=== PATIENT | male | born 1970 | race Caucasian/White ===

== ENCOUNTER 2019-03-04 19:24 | Inpatient (IN) ==
[2019-03-04] MEDS ORDERED: ZOFRAN IV ONE (20:21)
[2019-03-04] MEDS ORDERED: NS 1,000 ML IV ONE ×2 (20:21→23:40)
[2019-03-04 20:24] LABS: BASO# 0.03 X1000 (0.0-0.2); BASO% 0.3 % (0.0-0.8); EOS# 0.06 X1000 (0.0-0.7); EOS% 0.6 % (0.0-10.0); HEMOGLOBIN 14.5 g/dL (14.0-18.0); IMM GRAN# 0.03 X1000 (0.0-0.04); IMM GRAN% 0.3 % (0.0-0.5); LYMPH# 0.92 X1000 (1.2-3.4); LYMPH% 8.6 % (20.5-51.1); MCH 27.2 PG (27-31); MCHC 33.7 g/dL (33-37); MCV 80.7 FL (81-99); MONO# 0.48 X1000 (0.11-0.59); MONO% 4.5 % (1.7-9.3); NEUT# 9.21 X1000 (1.4-6.5); NEUT% 85.7 % (42.2-75.2); PLT 208 X1000 (130-400); RBC 5.33 XMIL (4.7-6.1); WBC 10.73 X1000 (4.8-10.8)
[2019-03-04 20:37] LABS: ALBUMIN 4.8 g/dL (3.5-5.0); CALCIUM 9.7 mg/dL (8.8-10.2); CREATININE 2.9 mg/dL (0.7-1.2); MAGNESIUM 1.6 mg/dL (1.5-2.7); PHOSPHORUS 1.5 mg/dL (2.7-4.5); POTASSIUM 4.1 mmol/L (3.5-5.1); TOTAL BILIRUBIN 0.5 mg/dL (0.20-1.00); TOTAL PROTEIN 7.3 g/dL (6.3-8.3)
--- NOTE | 2019-03-04 20:50 | PROVIDER DOCUMENTATION ---
This chart was entered by Ximena Vargas Scribe, acting as scribe for Marilyn Wells CRNP. HPI-General Adult - General Chief Complaint: Generalized Pain Stated Complaint: HEAT RELATED/LOC Time Seen by Provider: 03/04/19 19:52 Source: patient Allergies/Adverse Reactions: Patient Allergies Allergy/AdvReac Type Severity Reaction Status Date / Time codeine [Codeine] Allergy Severe HIVES Verified 11/30/12 15:29 Penicillins Allergy Severe HIVES Verified 11/30/12 15:29 methocarbamol [From Robaxin] Allergy Unknown Verified 01/17/16 18:11 Home Medications: Home Medication List Medication Instructions Recorded Confirmed Last Taken Type Gabapentin [Neurontin] 800 mg PO BID 11/30/12 03/04/19 01/17/16 08:00 History Oxycodone HCl [Oxycontin] 10 mg PO BID 11/30/12 03/04/19 01/17/16 08:00 History Oxycodone I.r. [Oxy Ir] 5 mg PO TID 11/30/12 03/04/19 01/17/16 08:00 History Losartan Potassium [Cozaar] 50 mg PO DAILY 01/12/15 03/04/19 01/17/16 08:00 History Pantoprazole Sodium [Protonix] 20 mg PO DAILY 01/17/16 03/04/19 01/17/16 08:00 History SIMVAstatin [Zocor] 10 mg PO QHS 01/17/16 03/04/19 01/16/16 History - History of Present Illness -Gen Adult Nature of Presenting Problems: Patient is a 48 yom who presents w/ c/o "doesn't feel right." n/v, shaking, muscle cramps starting today. Patient works outside some and doesn't drink a lot of water. Reports appropriate appetite. Patient's reports "his eyes will roll back in his head sometimes." However denies syncope, LOC, or seizure. D enies syncope, fever/chills, CP, dizziness, or SOB. Non-toxic in appearance. Review of Systems - Adult - REVIEW OF SYSTEMS - ADULT Constitutional: reports: no symptoms reported. denies: chills, fever, fatique Eyes: reports: no symptoms reported Ears, Nose, Mouth & Throat: reports: no symptoms reported Cardiovascular: reports: no symptoms reported. denies: chest pain, edema, palpitations Respiratory: reports: no symptoms reported. denies: cough, dyspnea on exertion, shortness of breath, wheezing Gastrointestinal: reports: see HPI, nausea, vomiting. denies: abdominal pain, hematemesis, diarrhea Genitourinary: reports: flank pain (R). denies: dysuria, urgency Musculoskeletal: reports: muscle aches (all over). denies: bone pain, neck pain Integumentary: reports: no symptoms reported Neurological: reports: no symptoms reported. denies: dizziness/vertigo, headache/migraines, syncope Psychiatric: reports: no symptoms reported Endocrine: reports: no symptoms reported Past History - Adult - PAST MEDICAL HISTORY-ADULT Review of Records: reports: Nursing Assessment Review, Medications Reviewed Major Childhood Illnesses: reports: denies history Cardiovascular: reports: HTN, hyperlipidemia Respiratory: reports: pneumonia Gastrointestinal: reports: denies history Obstetrical/Gynecological: reports: denies history Genitourinary: reports: denies history Musculoskeletal: reports: arthritis, chronic pain, neck/back injury, other fractures, orthopedic injury Neurological: reports: denies history Psychiatric: reports: denies history Endocrine/Immune: reports: denies history Other Conditions: reports: denies history - PRIOR SURGERIES/PROCEDURES Surgical/Procedure History: reports: hernia repair, orthopedic (extremity) - IMMUNIZATION STATUS Childhood Immunizations: See Nurse Assessment Flu Vaccine: See Nurse Assessment - FAMILY HISTORY Family History: reviewed, not pertinent - SOCIAL HISTORY Smoking: non-smoker Substance Use: alcohol Alcohol Use Frequency: rarely Physical Exam-General - PHYSICAL EXAM-ADULT Initial Vital Signs Reviewed: Yes - CONSTITUTIONAL General Appearance: alert, mild distress. negative: lethargic, slow to respond, obtunded - EYES Eyes: PERRL/EOMI, pink conjunctivae - HEAD, EARS, NOSE, MOUTH & THROAT HENMT: normocephalic/atraumatic, moist mucous membranes - NECK Neck: non-tender, full range of motion, supple, normal inspection - RESPIRATORY Respiratory: chest non-tender, lungs clear, normal breath sounds, no pleuratic chest pain, no respiratory distress, no accessory muscle use. negative: crackles, rales, rhonchi, stridor, wheezing, retractions, splinting - CARDIOVASCULAR Cardiovascular: normal peripheral pulses, regular rate, rhythm - GASTROINTESTINAL (ABDOMEN) Abdominal Exam: normal bowel sounds, non tender, soft, no organomegaly - MUSCULOSKELETAL Back Exam: normal inspection, CVA tenderness (minimal). negative: no CVA tenderness, decreased range of motion, ecchymosis Extremity: normal range of motion, non-tender, normal gait, normal inspection, pelvis stable Peripheral Pulses: radial (R): 2+, radial (L): 2+ - SKIN Integumentary: normal color, normal turgor, warm/dry. negative: cyanosis, jaundice, pallor - NEUROLOGIC Neurologic: grossly normal - PSYCHIATRIC Psych/Mental Status: normal mood/affect, normal thought content, normal thought process, oriented x 3 Progress - PLAN OF CARE/RESULTS Progress/Plan/Lab Results: Vital Signs - 8 hr 03/04/19 19:27 03/04/19 20:07 Temperature 97.7 F Pulse Rate 82 Pulse Rate [Sitting] 109 H Pulse Rate [Standing] 107 H Pulse Rate [Supine] 94 H Respiratory Rate 20 Blood Pressure 135/78 Blood Pressure [Sitting] 108/83 Blood Pressure [Standing] 133/83 Blood Pressure [Supine] 113/65 O2 Sat by Pulse Oximetry 98 Orders Category Date Time Status Orthostatic Vital Signs NOW Care 03/04/19 19:53 Active Saline Loc NOW Care 03/04/19 19:53 Active CBC WITH ELECTRONIC DIFF [HEME] Stat Lab 03/04/19 20:12 Received CK PROFILE [SP CHEM] Stat Lab 03/04/19 20:12 Received COMPREHENSIVE METABOLIC PANEL [CHEM] Stat Lab 03/04/19 20:12 Received MAGNESIUM [CHEM] Stat Lab 03/04/19 20:12 Received PHOSPHORUS [CHEM] Stat Lab 03/04/19 20:12 Received PRO B-NATRIURETIC PEPTIDE Stat Lab 03/04/19 20:12 Received PROTIME WITH INR [COAG] Stat Lab 03/04/19 20:11 Received PTT [COAG] Stat Lab 03/04/19 20:11 Received TROPONIN T Stat Lab 03/04/19 20:[address] W/POSS RFLX CULT [URINALYSIS] Stat Lab 03/04/19 19:53 Uncollected 0.9% Sodium Chloride Inj [Ns] 1,000 ml Med 03/04/19 20:21 Active IV 999 mls/hr Ondansetron [Zofran] Med 03/04/19 20:21 Once 4 mg IV NOW ONE EKG [EKG] Stat Ther 03/04/19 19:53 Ordered Result Diagrams: 03/04/19 20:12 03/04/19 20:12 - EKG 1 Time of EKG reading by physician:: 20:37 EKG Read and Signed by:: Ender Coyle EKG Interpretation (*Must complete 3 of following elements*): Normal Rate: 96 Rhythm: NSR [place]: normal QRS: normal VT Interval: normal ST Wave: normal - CT/MRI 1 CT Study: Renal Stone Impression: See EMR Report ("1. No hydronephrosis or nephroureterolithiasis 2. Nonobstructive bowel gas pattern. No free air or fluid. 3. Evidence of prior granulomatas infection.") - CONSULTS/PCP/HOSPITALIST Notification #1 *Consult/PCP/Hospitalist*: MD Serge Time Discussed: 23:49 Reason/Comments: STEPHON Consult Disposition: Admit Departure - Departure Date of Disposition Decision: 03/04/19 Time of Disposition Decision: 23:49 DIAGNOSIS: Acute kidney injury, Myalgia Hematuria Qualifiers: Hematuria type: unspecified type Qualified Code(s): R31.9 - Hematuria, unspecified Disposition: ADMITTED INPATIENT 09 Certified Medical Emergency: Emergent Condition: Stable Referrals and Follow-Ups: Júnior Orlando MD [Primary Care Provider] - - Critical Care Note This patient required my direct & personal management of CC.: No Attestation - Physician/ CINDY Attestation Patient care was provided by Advanced Practice Provider:: Yes Advanced Practice Provider:: Marilyn Wells Advanced Practice Provider documentation review:: The Mid-level provider documentation, treatment plan and medical decision making was reviewed by the physician who agrees with all treatment and medical decision making by the P. The physician spent face to face time with patient:: No Advanced Practice Provider documentation review:: Supervising physician onsite and consulted in the evaluation and care of this patient. The physician did not have a face to face encounter with the patient. This chart was documented by the indicated scribe, (Ximena Vargas Scribe) and accurately reflects the services I performed and decisions made by , Marilyn Wells CRNP, as attested by the provider's signature.
[2019-03-04 20:55] LABS: INR 1.01; PROTIME 13.8 Seconds (11.0-16.0); PTT 27.2 Seconds (22.3-41.8)
--- NOTE | 2019-03-04 21:47 | EKG Report ---
Test Performed on : 03/04/2019 8:33:53 PM Test Reason : dizziness Blood Pressure : / mmHG Vent. Rate : 096 BPM Atrial Rate : 096 BPM P-R Int : 134 ms QRS Dur : 094 ms QT Int : 360 ms P-R-T Axes : 000 026 033 degrees QTc Int : 454 ms Normal sinus rhythm. Normal ECG When compared with ECG of 30-NOV-2012 14:17, No significant change was found Unconfirmed Result
[2019-03-04 22:30] LABS: BILIRUBIN URINE NEGATIVE (NEGATIVE); BLOOD URINE 1+ (NEGATIVE); CLARITY CLEAR (CLEAR); COLOR YELLOW; GLUCOSE URINE NEGATIVE (NEGATIVE); KETONE URINE NEGATIVE (NEGATIVE); LEUKOCYTES URINE TRACE (NEGATIVE); NITRITE URINE NEGATIVE (NEGATIVE); PH URINE 6.5; PROTEIN URINE 1+(30 mg/dL) mg/dL (NEGATIVE); SP GRAVITY URINE 1.005; UROBILINOGEN URINE NORMAL
[2019-03-04 22:51] LABS: URINE RBC <10 /HPF (<10)
[2019-03-04 22:54] LABS: URINE BACTERIA 2+ /HFP; URINE CRYSTAL CA OXALATE PRESENT /HPF; URINE EPITHELIAL CELLS <10 /HPF (<10); URINE SOURCE CLEAN CATCH; URINE YEAST NONE SEEN /HPF
[2019-03-04] MEDS ORDERED: OXY IR PO ONE (23:47)
[2019-03-05] MEDS ORDERED: NS 1,000 ML IV ONE ×2 (00:07→02:16)
[2019-03-05 06:11] LABS: BASO# 0.03 X1000 (0.0-0.2); BASO% 0.4 % (0.0-0.8); EOS# 0.19 X1000 (0.0-0.7); EOS% 2.5 % (0.0-10.0); HEMATOCRIT 37.9 % (42.0-52.0); HEMOGLOBIN 12.4 g/dL (14.0-18.0); IMM GRAN# 0.02 X1000 (0.0-0.04); IMM GRAN% 0.3 % (0.0-0.5); LYMPH% 24.1 % (20.5-51.1); MCH 26.9 PG (27-31); MCHC 32.7 g/dL (33-37); MCV 82.2 FL (81-99); MONO# 0.66 X1000 (0.11-0.59); MONO% 8.8 % (1.7-9.3); MPV 9.7 FL (7.4-10.4); NEUT# 4.76 X1000 (1.4-6.5); NEUT% 63.9 % (42.2-75.2); PLT 178 X1000 (130-400); RBC 4.61 XMIL (4.7-6.1); RDW 12.9 % (11.5-14.5); WBC 7.46 X1000 (4.8-10.8)
[2019-03-05 06:35] LABS: CALCIUM 8.3 mg/dL (8.8-10.2); CREATININE 1.8 mg/dL (0.7-1.2); POTASSIUM 3.9 mmol/L (3.5-5.1)
[2019-03-05 06:36] LABS: ALBUMIN 3.9 g/dL (3.5-5.0); TOTAL BILIRUBIN 0.4 mg/dL (0.20-1.00); TOTAL PROTEIN 6.1 g/dL (6.3-8.3)
[2019-03-05] MEDS ORDERED: OXY IR PO PRN (07:41)
[2019-03-05] MEDS ORDERED: NS 1,000 ML IV SCH (07:45)
--- NOTE | 2019-03-05 07:47 | Diag Imaging Result Doc PS360 ---
EXAM: CT RENAL STONE SEARCH - 03/04/2019 HISTORY: Flank pain; hematuria TECHNIQUE: CT renal stone search without contrast COMPARISON: 05/06/2016 FINDINGS: There is no hydronephrosis or perinephric edema identified. There is no renal stone identified. There is no evidence of bowel obstruction. The right colon is tortuous. The appendix is questionably visualized and is unremarkable. There is a moderate amount retained fecal debris in colon. There is no free air. There are no calcified gallstones or pericholecystic inflammation identified. There are nonspecific small retroperitoneal lymph nodes. There are some degenerative changes noted at the lower lumbar spine. IMPRESSION: No evidence of renal stone or hydronephrosis. No bowel obstruction. Apparent constipation. Nonspecific small retroperitoneal lymph nodes. The on-call radiologist provided preliminary results at 11:33 PM on 03/04/2019. This exam was performed using automated exposure control, adjustment of mA or kV according to patient size, and/or use of iterative reconstruction technique. Electronically signed by Donavon Nguyen 03/05/2019 7:45 AM
[2019-03-05] MEDS ORDERED: OXYCONTIN PO SCH (09:00)
[2019-03-05] MEDS: NEURONTIN PO SCH ×2 (09:10→15:39)
[2019-03-05] MEDS: NS 1,000 ML IV SCH ×2 (09:20→14:28)
[2019-03-05 15:26] VITALS: BP 131/74
[2019-03-06] MEDS ORDERED: PROTONIX PO SCH (07:00)
--- NOTE | 2019-03-06 11:58 | HISTORY AND PHYSICAL ---
CHIEF COMPLAINT: Generalized fatigue. HISTORY OF PRESENT ILLNESS: The patient is a 48-year-old male who notes that he works outside in the heat. He notes that he had not been feeling well. He has had nausea, no real vomiting, but he has had shaking chills, muscle aches that all started today. He states he works outside. He probably does not drink enough. Denies decrease in appetite today. The notes that he had a presyncopal episode. She felt that his eyes rolled back and thought he was going to pass out, but he did not. He had no loss of consciousness. Did not fall. He was able sit down before she called the ER. ALLERGIES: 1. Codeine causing hives. 2. Penicillin causing hives. 3. Robaxin, unknown. MEDICATIONS: 1. Neurontin 800 b.i.d. 2. OxyContin. 3. Oxy IR. 4. Cozaar. 5. Protonix 20. 6. Simvastatin 10. PAST MEDICAL HISTORY: Significant for 1. Hypertension. 2. Hyperlipidemia. 3. Recurrent pneumonia. 4. Chronic neck and back pain. 5. History of fractures. PAST SURGICAL HISTORY: 1. He has had a hernia repair. 2. Orthopedic surgery. REVIEW OF SYSTEMS: As noted above. Positive flank pain, muscle aches all over, generalized fatigue. Denies any focalized weakness. He has had chills but denies any fevers, cough, congestion or other upper respiratory type symptoms. Denies headaches, blurred vision, change in vision. Denies any focalized numbness, tingling, weakness. Denies skin rashes, weight loss or weight gain. FAMILY HISTORY: Noncontributory. SOCIAL HISTORY: Patient is . He denies smoking. Does drink alcohol frequently. Denies other illicit substance use. PHYSICAL EXAMINATION: VITAL SIGNS: Temperature 97.8, pulse 82, respiratory rate 20, saturating 98% on room air. GENERAL: Patient is awake, alert. He is very pleasant. He is in no respiratory distress but he is somewhat ill-appearing. HEENT: Normocephalic. NECK: Supple. CARDIOVASCULAR: Regular rate. No murmurs. CHEST: Clear, nonlabored. No wheezing.Abdomen: Soft, nondistended, nontender. Extremities: Moves all extremities. No edema. Neurologic: No focal neurological changes. ASSESSMENT: 1. Acute renal failure. Creatinine at 2.9, but his baseline around 0.9. 2. Myalgias. 3. Volume depletion. 4. Heat exhaustion. 5. Chronic pain. 6. Hypertension. PLAN: We will continue the patient in the hospital. We will hold his Cozaar for now as we will hold his Zocor. We will place him on IV fluids. Follow his creatinine. It is actually starting to improve already from 2.9 down to 1.8. We will continue to push fluids. Follow his blood pressures. Further orders as needed. cc: Jl Valentine MD
--- NOTE | 2019-03-07 21:30 | DISCHARGE SUMMARY ---
ADMISSION DATE: 03/04/2019 DISCHARGE DATE: 03/05/2019 DISCHARGE DIAGNOSES: 1. Nausea and vomiting, resolved. 2. Shaking chills, resolved. 3. Muscle cramps, resolved. 4. Fatigue improved. 5. Myalgias resolved. 6. Chronic pain. 7. High cholesterol. 8. Hypertension. 9. Heat exhaustion. CONSULTATIONS: None. PROCEDURES: None. BRIEF HOSPITAL COURSE: The patient is a 48-year-old male who presented to [facility] secondary to nausea, abdominal pain, myalgias, and heat exhaustion. He had been working outside. He had not been drinking well. His urine output has decreased. He was admitted to the hospital, given IV fluids. After a few boluses, his symptoms improved. He notes that he is feeling much better and desired to go home. He will be discharged home. He will follow up outpatient with treatment facility of choice. Discussed with patient that he needs to avoid the heat and heat exposure for the next several days. When he does go back outside, he needs to make sure that he stays well hydrated. He should leave off his cholesterol medication for the next couple of weeks and then should restart it. cc: Jl Valentine MD
== END 2019-03-05 17:50 | disposition home or self-care (01) | DRG 684 ==
LOC: P.ED 19:24 → P.EDIPHOLD 03-05 01:52 → P.MEDSURG 03-05 03:20
PROVIDERS: ATTEND Family Medicine
CPT/HCPCS: 74176; 80053; 81001; 82550; 83735; 83880; 84100; 84484; 85025; 85610; 85730; 87088; 93005; A9270; J2405; J7030